=== PATIENT | female | born 1980 | race Caucasian/White ===

== ENCOUNTER 2025-10-18 16:41 | Outpatient (CLI) | payer OTHER, SELFPAY ==
[2025-10-18 17:13] LABS: Hematocrit 39.6 % (37.0-47.0); Hemoglobin 13.0 g/dL (12.0-15.0); Mean Corpuscular HGB Conc 32.8 g/dl (32-36); Mean Corpuscular Hemoglobin 29.9 pg (26-34); Mean Corpuscular Volume 91.0 fl (80-100); Platelet Count Result 215 k/mm3 (150-375); Red Blood Count 4.35 M/mm3 (4.2-5.4); White Blood Count 6.1 K/mm3 (4.5-10.0)
[2025-10-18 17:26] LABS: Albumin Level 4.0 g/dL (3.5-5.1); Anion Gap 6 mmol/L (4-12); Blood Urea Nitrogen 16 mg/dL (7-17); Calcium 8.7 mg/dL (8.4-10.2); Carbon Dioxide 27 mmol/L (22-30); Chloride 103 mmol/L (98-107); Estimated Glomerular Filt Rate > 60; Glucose 84 mg/dL (65-110); Iron 107 ug/dL (37-170); Potassium 3.9 mmol/L (3.4-5.0); Sodium 136 mmol/L (137-145)
[2025-10-18 17:38] LABS: Prealbumin 18.7 mg/dL (17.6-36.0)
[2025-10-18 18:37] LABS: Vitamin B12 514.0 pg/mL (239-931)
[2025-10-21 05:08] LABS: Copper, Serum or Plasma 75 ug/dL (80-158)
== END 2025-10-18 16:42 | disposition home or self-care (01) ==
PROVIDERS: Visit Provider Surgery Plastic and Reconstructive Surgery
DX: R63.4 Abnormal weight loss (principal)
CPT/HCPCS: 36415; 80048; 82040; 82525; 82607; 82746; 83540; 84134; 85027

== ENCOUNTER 2025-11-11 01:32 | Day surgery (SDC) | payer OTHER, SELFPAY ==
--- NOTE | 2025-11-09 10:42 | PC.NURSE ---
[facility] has started construction of its new state of the art ER which will open Spring 2026. With this, we anticipate parking may be a challenge for some our surgical patients and families. Parking spaces are limited but are available for all Surgical, obstetrics, and ER patients sharing this lot. If you arrive and find you are having a hard time finding a parking space, please note that we understand the challenges, please drive around the hospital and park near Hospital Entrance 1. When you enter this entrance, you can ask a volunteer to direct or take you back to the surgical waiting area to check in. We appreciate everyone?s understanding of these expected challenges while we build for your future. Report to the Outpatient Waiting Room, entrance under the green pavilion located off [address], at time _0600_ on date 11/11/25_. Planned Procedure Time: _0730__.? Time changes happen often and if your time is changed the preop area will call you the afternoon before. - You and your visitor will be asked to self-screen and do not enter if you have any COVID symptoms. Please call surgeon if you need to reschedule. - A mask is optional within the hospital at this time. Patients may have clear liquids (water, carbonated beverages, clear teas, apple juice) until 3 hours prior to surgery with a maximum of 20 ounces. - No food from midnight until time of surgery and no smoking, or chewing tobacco (or any form of nicotine). No chewing gum, candy or mints. Take only the following medications with a SIP of water on the morning of surgery: BUPROPION DO NOT STOP ANY OF YOUR OTHER PRESCRIPTION MEDICATIONS PRIOR TO SURGERY EXCEPT THE FOLLOWING Hold all vitamins and supplements for 3 days per anesthesiologist. Medications to discontinue per physician PT STOPPED ZEPBOUND EARLY OCTOBER Date to take last dose Please no make-up, nail taiwanese, hairspray, perfume, deodorant, or body powder the day of surgery.? No jewelry (including any body piercings) or valuables the day of surgery, leave them at home.? Please take a shower or bath the night before, or the morning of, surgery with an antibacterial soap.? Wear comfortable, loose fitting clothing.? Children are encouraged to wear pajamas. - Jewelry must be removed prior to entering the operating room.? Rings and piercings that are not removed may be cut off. - The hospital will not accept responsibility for valuables.? - Please leave all valuables, including medications, at home the day of surgery. If you are going home after surgery, a licensed otr truck driver must drive you home.? - NO public transportation without another adult if you receive anesthesia. - We recommend that an adult stay with you for 24 hours following discharge. - We also recommend that you do not drive, make important decision, drink alcoholic beverages, or take any drugs that were not prescribed by your health care provider for at least 24 hours after your discharge time. For Pediatric surgeries, we recommend two adults accompany the child home. Follow any additional instructions given to you from your surgeon. Telephone instructions given to PATIENT_and asked if any additional questions and then verbalized understanding. Patient advised to call surgeon office or pre surgery nurse liaison [phone] if any additional questions.
[2025-11-11] VITALS (11 sets, daily range): BP systolic 100–155; BP diastolic 66–96; PULSE 68–98; RESP 12–18; TEMP 36.1–36.9; O2SAT 98–100; BMI 32.9
[2025-11-11] MEDS: LACTATED RINGERS 1,000 ML 30 ML IV CONT ×2 (07:00→14:43)
--- NOTE | 2025-11-11 07:06 | WPDANESEPPF ---
Anes - Initial Pre Proc Eval Procedure: Operation Date: 11/11/25 07:30 Proposed Procedures p Marysol De Cheryl Belt Lipectomy with Liposuction - Sarkis Padilla MD Date/Time: 11/11/25 07:06 Surgeon: Sarkis Padilla MD Pre Op Diagnosis: skin laxity Patient Data Age: 45 Gender: F Height: Weight: Allergies Allergy/AdvReac Type Severity Reaction Status Date / Time No Known Allergies Allergy Verified 11/09/25 10:27 Home Medications ?Medication ?Instructions ?Recorded ?Confirmed ?Type acyclovir 400 mg tablet 400 mg PO Q8H 11/09/25 11/09/25 History bupropion HCl 300 mg 24 hr tablet, 300 mg PO DAILY 11/09/25 11/09/25 History extended release hydroxyzine HCl 25 mg tablet 25 mg PO Q8H PRN itching 11/09/25 11/09/25 History lisinopril 40 mg tablet 40 mg PO DAILY 11/09/25 11/09/25 History magnesium gluconate 27 mg 27 mg PO DAILY 11/09/25 11/09/25 History magnesium (500 mg) tablet metformin 500 mg tablet,extended 1,000 mg PO BID 11/09/25 11/09/25 History release 24 hr multivitamin-iron sulfate 15 1 tablet PO DAILY 11/09/25 11/09/25 History mg-folic acid 400 mcg tablet tirzepatide (weight loss) 15 15 mg subcut WEEKLY 11/09/25 11/09/25 History mg/0.5 mL subcutaneous pen injector (Zepbound) tretinoin 0.025 % topical cream applic topical Q3D 11/09/25 History Laboratory Tests 11/11/25 06:37 Cotinine Negative Patient hx anesthesia problems: post op nausea/vomiting Family hx anesthesia problems: none Results Review: All pre-operative results and documents have been reviewed as part of the pre-operative evaluation. [facility] Past Medical History Medical History (Updated 11/11/25 @ 07:07 by Emanuel Johnson DO) Hypertension Social History Social History Smoking status: Never smoker Alcohol intake: former Alcohol use details: NO DRINKS IN 8 MONTHS, OTHERWISE SOCIAL Substance use: never Living arrangements: alone Anes - Eval Final PreProcedure Day of Procedure 11/11/25 07:06 Patient weight: overweight Heart: regular rate and rhythm Lungs: clear to auscultation Airway: Mallampati scale class II Neurological: alert and oriented Last oral intake: >/= 8 hours ASA classification: II Emergent: no Anesthetic plan: proceed Anesthesia type and monitoring: general ETT and standard monitoring Results Review: All pre-operative results and documents have been reviewed as part of the pre-operative evaluation. Informed Consent: The patient's anesthetic plan and its attendant risks and benefits were discussed with the patient/family/POA. Questions were solicited and answers provided to the satisfaction of the patient/family/POA.
[2025-11-11 07:24] LABS: BEDSIDEPREGUCG Negative (Negative)
[2025-11-11] MEDS: TRANEXAMIC ACID 1,000MG/ISO100 1,000 MG/100 ML BAG 200 MG IVPB (07:25)
[2025-11-11] MEDS: SCOPOLAMINE 1 MG PATCH 1 PATCH TRANSDERM (07:25)
--- NOTE | 2025-11-11 07:31 | WPDHPUPDATE1 ---
History and Physical Update Update Date/Time: 11/11/25 07:31 History and Physical has been reviewed, including an updated exam of the patient. There are NO changes in the patient's condition. Risks, benefits, and alternatives have been discussed and questions answered. Patient agrees to proceed with procedure.
--- NOTE | 2025-11-11 07:32 | P.OP_ITS ---
Procedure Note - Detailed Date of Procedure 11/11/25 Pre-op Diagnosis skin laxity Post-op Diagnosis Same Procedure Performed [id number] belt lipectomy with suction lipectomy Surgeon Sarkis Padilla MD Anesthesia General Findings Lipoaspirate: 1,700 cc Tissue removed: 6,911 grams Diastasis: 8cm Description of Procedure They are here today for the above procedures. Previously and again today the risks, benefits, alternatives were discussed in extensive detail. I wanted them to be very realistic about the risks involved as well as expectations. We discussed aftercare and what to monitor for. I was very upfront about the risks of wound breakdown leading to loss of skin, open wounds, and need for additional procedures with permanent abdominal deformity. We discussed DVT/PE risks and management. Made sure answered all of their questions to their satisfaction today and consent was obtained. They were marked in the preoperative holding area with their verification. The patient was taken to the operating room. Anesthesia was provided by anesthe siology. A Cavanaugh catheter was started. Posterior Placed prone on the operating room table with care taken to protect from injury. Prepped and draped in a standard sterile fashion. A surgical time-out was taken. Stab incisions were made and tumescent solution was infiltrated. Once adequate time was allowed for hemostasis a 5mm basket and 4mm sundar cannula were utilized to complete suction lipectomy based on S.A.F.E. technique in multiple planes and passes. Suction lipectomy continued to result based on pre-operative planning, intra-operative observation, and rolling pinch test which were in full agreement. A 10 blade was used to make the upper incision and dissection was continued inferior elevating what we necessary for closure. I placed patient in slight jackknife position and excised intervening tissue. 15 Augustus placed . This was closed with 3 point suture with 2-0 Vicryl followed 2-0 PDO strattafix, 3-0 stratafix ,running subcuticular 4-0 Monocryl, and tissue glue. Laterally nain were placed for turning. Anterior Patient was then placed supine with care taken to protect from injury. Prepped and draped in a standard sterile fashion. I placed the patient in a flexed position to verify the upper and lower markings would reach. I then placed supine. A thorough abdominal examination was completed. Stab incisions were made and tumescent solution infiltrated. Stab incisions were made and tumescent solution was infiltrated. Once adequate time was allowed for hemostasis a 5mm basket and 4mm sundar cannula were utilized to complete suction lipectomy based on S.A.F.E. technique in multiple planes and passes. Suction lipectomy continued to result based on pre-operative planning, intra-operative observation, and rolling pinch test which were in full agreement. A 10 blade was used to make the vertical and upper incision. I continued dissection down to the level of fascia. Elevated just what was necessary for repair of the diastasis with no undermining. I then again flexed the bed to verify the upper skin flap would reach the lower markings without tension. Once verified I placed her supine once again and a 10 blade used to make the lower incision. I elevated the umbilicus and left the umbilicus intact on a well- vascularized stalk. The intervening tissue was removed. A 2 mm blunt cannula with 0.5% bupivacaine was injected deep to the fascia bilaterally. I plicated the diastasis recti using 0 PDO Stratafix barbed suture. This was in 2 separate layers using 2 separate sutures as well. The patient was flexed and starting from superior to inferior began plication using 2-0 Vicryl to obliterate all space in a standard fashion. At the umbilicus I marked out the location of the skin and inset this with 3-0 Monocryl and 4-0 Vicryl. I continued the remainder of the closure 2-0 Vicryl until I reached my lower planned scar line. I trimmed the excess skin of the upper flap making sure this was a tension-free closure. 15 Augustus drain (previously placed) was brought out laterally. I then approximated using a 3 point suture with 2-0 Vicryl followed by 2-0 PDO Stratafix, 3-0 Stratafix ,running subcuticular 4-0 Monocryl, and tissue glue for the vertical and lower incision. Fluffs and an abdominal binder were placed. The patient was transferred to the bed in a flexed position. [place] and taken to the PACU without difficulty. All instrument and sponge counts were correct at the end of the case. Estimated Blood Loss 100 Drains Yes (15 Augustus) Packing No Pathology None sent Complications No immediate complications Condition Stable Disposition PACU
[2025-11-11] MEDS: LACTATED RINGERS IRRIG 1,000 ML, LIDOCAINE 1% LOCAL INJ 50 ML, EPINEPHrine HCL INJ 1 MG... INFILTRATE (07:38)
[2025-11-11] MEDS: BUPIVACAINE/EPINEPHRINE 0.5% 50 ML VIAL 60 ML INFILTRATE (07:38)
[2025-11-11] MEDS: ceFAZolin 2 GM in SODIUM CHLORIDE 0.9% IV 50 ML 100 ML IVPB (08:20)
[2025-11-11] MEDS: fentaNYL CITRATE INJ (*CRX) 100 MCG/2 ML VIAL 25 MCG IV PUSH ×6 (14:40→15:10)
[2025-11-11] MEDS: HYDROmorphone HCL INJ (*CRX) 1 MG/ML SYR 0.5 MG IV PUSH ×2 (15:21→15:36)
--- NOTE | 2025-11-11 16:15 | SUR.PHASEII ---
Dr. Padilla notified of patient having drainage from incision soaking through foam and binder. At bedside to assess patient. H&H ordered. Patient will be monitored closely in phase 2 of recovery.
[2025-11-11] MEDS: ONDANSETRON INJ 4 MG/2 ML VIAL IV PUSH (16:20)
[2025-11-11 16:44] LABS: Hematocrit 33.6 % (37.0-47.0); Hemoglobin 11.0 g/dL (12.0-15.0)
--- NOTE | 2025-11-11 17:03 | SUR.PHASEII ---
Dr. Padilla notified of H&H result. Laron for patient to be discharged home.
== END 2025-11-11 17:35 | disposition home or self-care (01) ==
PROVIDERS: Visit Provider Surgery Plastic and Reconstructive Surgery
PROC: (CPT 15830; principal; 2025-11-11 07:30)
DX: Z41.1 Encounter for cosmetic surgery (principal); L57.4 Cutis laxa senilis
CPT/HCPCS: 15877; 15839; 15830; 15847; 36415; 80307; 85014; 85018; J0690; A9270; J0166; J1100; J1171; J1200; J2003; J2250; J2405; J2704; J3010; J3290; J7120